=== PATIENT | male | born 1960 | race Caucasian/White ===

== ENCOUNTER 2018-08-25 14:38 | Emergency (ER) | payer OTHER ==
[~2018-08-25] VITALS: Wt 74.0 kg
[~2018-08-25 14:38] MED LIST: ASPI-817 PO; GABA300C16 PO; GLIM4TAB PO; METF100010 PO; PIOG45TA64 PO
[2018-08-25 14:41] VITALS: BP 150/72; PULSE 75; RESP 18
[2018-08-25] MEDS ORDERED: HYDROCODONE/APAP (5/325) TAB PO ONE (15:00)
--- NOTE | 2018-08-25 15:18 | ERD ---
ER Documentation Chief Complaint Chief Complaint LEFT SIDE BACK PAIN FROM A FALL FROM [place] ABOUT 6 FT. HPI 58-year-old male whose had a mechanical fall off a balcony approximately 6 feet high and landed on his left side. Triage note stated he had back pain however patient denies any back pain and states the pain is in his left lateral and anterior rib cage. No head injury or KO. Pain is worse when he moves or takes a deep breath. No other areas of pain aside from his left rib cage. No head injury or cervical spine injury. ROS All systems reviewed and are negative except as per history of present illness. Medications Home Meds Active Scripts Hydrocodone/Acetaminophen ([place] 5-325 Tablet) 1 Each Tablet, 1 TAB PO Q6H PRN for PAIN, #15 TAB Prov:SHARON VERGARA PA-C 08/25/18 Ibuprofen* (Motrin*) 800 Mg Tab, 800 MG PO Q6, #30 TAB Prov:SHARON VERGARA PA-C 08/25/18 Reported Medications Aspirin* (Aspirin* EC) 81 Mg Tablet.dr, 81 MG PO DAILY 05/09/13 Glimepiride* (Glimepiride*) 4 Mg Tablet, 8 MG PO AM 05/09/13 Pioglitazone Hcl* (Pioglitazone Hcl*) 45 Mg Tablet, 30 MG PO DAILY 05/09/13 Gabapentin* (Gabapentin*) 300 Mg Capsule, 300 MG PO BID 05/09/13 Metformin Hcl* (Metformin Hcl*) 1,000 Mg Tablet, 1000 MG PO BID 05/09/13 Allergies Allergies: Coded Allergies: No Known Allergy (Unverified , 05/09/13) PMhx/Soc History of Surgery: No Anesthesia Reaction: No Hx Neurological Disorder: No Hx Respiratory Disorders: No Hx Cardiac Disorders: No Hx Psychiatric Problems: No Hx Miscellaneous Medical Probl: Yes (DM, non compliance) Hx Alcohol Use: No Hx Substance Use: No Hx Tobacco Use: No Smoking Status: Never smoker FmHx Family History: diabetes Physical Exam Vitals Vital Signs Date Temp Pulse Resp B/P (MAP) Pulse Ox O2 O2 Flow FiO2 Time Delivery Rate 08/25/18 98.1 75 18 150/72 98 14:41 (98) Physical Exam Const: No acute distress Head: Atraumatic Eyes: Normal Conjunctiva ENT: Normal External Ears, Nose and Mouth. Neck: Full range of motion. No meningismus. No midline tenderness Resp: Clear to auscultation bilaterally Cardio: Regular rate and rhythm, no murmurs, tender to palpation over left lower and anterior rib cage, no step-offs or bony abnormalities Abd: Soft, non tender, non distended. Normal bowel sounds Back Exam: Skin: No bruising or rash Compartments: Soft Motor: Normal flexion and extension of bilateral hip/knee/ankle/foot Sensation: Intact to light touch throughout Bones: No midline TTP Results 24 hrs Current Medications Medications Dose Sig/Barry Start Time Status Last (Trade) Ordered Route PRN Stop Time Admin Dose Reason Admin 1 tab ONCE ONCE 08/25/18 DC 08/25/18 Acetaminophen PO 15:00 14:56 / 08/25/18 15:01 Hydrocodone Bitart ([place] (5/325)) Procedures/MDM Patient has rib cage pain after trauma. He was given [place] for pain and x-ray ordered. X-rays show nondisplaced fracture of ribs 7 through 11. No evidence of pneumothorax. Patient given prescription for ibuprofen and [place]. He is also given copy of his x-ray report so he can follow-up with primary care. reviwed case with daniel [email or web address].s Patient counseled regarding my diagnostic impression and care plan. Prior to discharge all questions answered. Pt agrees with treatment plan and understands strict return precautions. Pt is instructed to follow up with primary care provider within 24-48 hours. Precautionary i nstructions provided including instructions to return to the ER if not improving or for any worsening or changing symptoms or concerns. Departure Diagnosis: Primary Impression: Multiple rib fractures Condition: Stable SHARON VEGRARA PA-C Aug 25, 2018 15:17
[2018-08-25] MEDS ORDERED: HYDR-4011 PO (15:31)
[2018-08-25] MEDS ORDERED: IBUP800T48 PO (15:31)
== END 2018-08-25 16:09 | disposition home or self-care (01) ==
LOC: FTE 14:38
DX: S22.42XA Multiple fractures of ribs, left side, initial encounter for closed fracture (principal); E11.9 Type 2 diabetes mellitus without complications; W13.0XXA Fall from, out of or through balcony, initial encounter; Y92.9 Unspecified place or not applicable; Z79.84 Long term (current) use of oral hypoglycemic drugs; Z79.82 Long term (current) use of aspirin
CPT/HCPCS: 71100; Z7502; Z7610